=== PATIENT | male | born 1970 | race Caucasian/White ===

== ENCOUNTER 2017-07-02 07:59 | Emergency (ER) | payer OTHER ==
[2017-07-02] MEDS ORDERED: Famotidine 20 MG/2 ML SDV IVPUSH ONE (08:05)
--- NOTE | 2017-07-02 08:05 | EDM.PDOC ---
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 Departure - Departure Time of Disposition: 09:55 Disposition: DC/Tfer to [facility] 02 Clinical Impression: Sinus bradycardia, First degree AV block, Coronary artery disease, Syncope, Peptic reflux disease, Osteoarthritis, D-dimer, elevated, Pulmonary embolism, COPD (chronic obstructive pulmonary disease), Nasal fracture, Abrasion - Discharge Information Referrals: Nic Garcia PA [Primary Care Provider] - Forms: ED Department Discharge, Interfacility Transfer EMTALA - Problem List & Annotations (1) Pulmonary embolism SNOMED Code(s): 14079329, 91662270 Code(s): I26.99 - OTHER PULMONARY EMBOLISM WITHOUT ACUTE COR PULMONALE Status: Acute Priority: High Current Visit: Yes Onset Date: 07/02/17 Annotation/Comment:: Multiple large bilateral PEs as above with immediate initiation of IV heparin, including IV bolus as per VTE protocol, once the CTA scan report was received as above. Note previous ASA and Brilinta. Telephone consultation at 09:[address] Benjamin, hospitalist at [facility], who does accept the patient for direct admission into their facility. No further treatment recommendations given. Vital signs and pulse were relatively stable at time of discharge although somewhat elevated blood pressure, which was treated with one dose of IV Vasotec secondary to his right heart strain by CT scan as above. Blood pressure improved with this therapy. Continue to observe his blood pressures closely with no previous history of hypertension. Ambulance transfer with policy value calculator accompaniment. Note that the patient did drive to [place] in April, however did make frequent stops every 2 hours, with no previous history of leg pain, swelling, etc.. [employer] work excuse completed with the patient's also given a blank [place] form for his [place] physicians Qualifiers: Pulmonary embolism type: other Chronicity: acute Acute cor pulmonale presence: with acute cor pulmonale Qualified Code(s): I26.09 - Other pulmonary embolism with acute cor pulmonale (2) Coronary artery disease SNOMED Code(s): 66245473 Code(s): I25.10 - ATHSCL HEART DISEASE OF [place] CORONARY ARTERY W/O ANG PCTRS Status: Acute Priority: High Current Visit: Yes Onset Date: Annotation/Comment:: Possible anterior wall cardiac ischemia with evidence of right heart strain secondary to pulmonary embolism by CT scan as above. No recent chest pain or anginal type symptoms, however note recent decreased exercise tolerance. Consider cardiology consultation, cardiac workup, etc. depending on his clinical course. Note that aspirin and Brilinta were given after EKG was obtained secondary anterior wall cardiac changes. No beta lenka therapy was given secondary to his bradycardia on arrival Qualifiers: Coronary Disease-Associated Artery/Lesion type: [place] artery [place] vs. transplanted heart: [place] heart Associated angina: without angina Qualified Code(s): I25.10 - Atherosclerotic heart disease of [place] coronary artery without angina pectoris (3) Syncope SNOMED Code(s): 240554032 Code(s): R55 - SYNCOPE AND COLLAPSE Status: Acute Priority: High Current Visit: Yes Onset Date: 07/02/17 Annotation/Comment:: Likely secondary to pulmonary emboli as above Qualifiers: Syncope type: unspecified Qualified Code(s): R55 - Syncope and collapse (4) COPD (chronic obstructive pulmonary disease) SNOMED Code(s): 95214544 Code(s): J44.9 - CHRONIC OBSTRUCTIVE PULMONARY DISEASE, UNSPECIFIED Status : Chronic Priority: Medium Current Visit: Yes Annotation/Comment:: Moderate COPD by chest x-ray with no recent fever or bronchitic type symptoms. No previous history of asthma, COPD or known pulmonary disease. Consider PFTs once the patient's health status has improved Qualifiers: COPD type: emphysema Emphysema type: panlobular Qualified Code(s): J43.1 - Panlobular emphysema (5) D-dimer, elevated SNOMED Code(s): 759673041 Code(s): R79.89 - OTHER SPECIFIED ABNORMAL FINDINGS OF BLOOD CHEMISTRY Status: Acute Priority: High Current Visit: Yes Onset Date: 07/02/17 Annotation/Comment:: Secondary to large bilateral pulmonary emboli as above (6) First degree AV block SNOMED Code(s): 208920271 Code(s): I44.0 - ATRIOVENTRICULAR BLOCK, FIRST DEGREE Status: Acute Priority: High Current Visit: Yes Onset Date: 07/02/17 Annotation/Comment: : Newly diagnosed with possible heart disease as above (7) Osteoarthritis SNOMED Code(s): 626826954 Code(s): M19.90 - UNSPECIFIED OSTEOARTHRITIS, UNSPECIFIED SITE Status: Chronic Priority: Medium Current Visit: Yes Annotation/Comment:: Stable by history Qualifiers: Osteoarthritis location: multiple joints Osteoarthritis type: primary Qualified Code(s): M15.0 - Primary generalized (osteo)arthritis (8) Peptic reflux disease SNOMED Code(s): 35409580 Code(s): K21.9 - GASTRO-ESOPHAGEAL REFLUX DISEASE WITHOUT ESOPHAGITIS Status: Chronic Priority: Medium Current Visit: Yes Annotation/Comment:: Stable by history with high-dose IV Pepcid given as GI prophylaxis (9) Sinus bradycardia SNOMED Code(s): 84550487 Code(s): R00.1 - BRADYCARDIA, UNSPECIFIED Status: Chronic Priority: High Current Visit: Yes Annotation/Comment:: Previous history of sinus bradycardia, however patient has not been physically active recently as above. Consider cardiac workup as above (10) Abrasion SNOMED Code(s): 369389034 Code(s): T14.8 - OTHER INJURY OF UNSPECIFIED BODY REGION Status: Acute Priority: Medium Current Visit: Yes Onset Date: 07/02/17 Annotation/ Comment:: Mild head contusion and superficial abrasion of the nasal bridge. DTaP given. Neosporin dressing placed (11) Nasal fracture SNOMED Code(s): 961029296 Code(s): S02.2XXA - FRACTURE OF NASAL BONES, INIT ENCNTR FOR CLOSED FRACTURE Status: Acute Priority: High Current Visit: Yes Onset Date: 07/02/17 Annotation/Comment:: Mild nasal bridge fracture as above. No intervention required Qualifiers: Encounter type: initial encounter Fracture type: closed Qualified Code(s) : S02.2XXA - Fracture of nasal bones, initial encounter for closed fracture - Problem List Review Problem List Initiated/Reviewed/Updated: Yes - My Orders Last 24 Hours: My Active Orders 07/02/17 08:05 Cardiac Monitoring [RC] . DIRECTED Oxygen Therapy, ED [RC] CONTINUOUS Pulse Oximetry [RC] CONTINUOUS Up With Assistance [RC] PFP Vital Signs [RC] PFP Chest 1V Frontal [CR] Stat Sodium Chloride 0.9% [Saline Flush] 10 ml FLUSH ASDIRECTED PRN Obtain Past Medical Record [OM.PC] Urgent Peripheral IV Insertion Adult [OM.PC] Stat Resuscitation Status Stat 07/02/17 08:06 EKG Documentation Completion [RC] ASDIRECTED Peripheral IV Care [RC] . DIRECTED 07/02/17 08:07 PROLACTIN [REF] Stat 07/02/17 08:13 Facial Bones Less 3V [CR] Stat 07/02/17 08:24 Vaccines to be Administered [RC] PER UNIT ROUTINE 07/02/17 08:27 Chest PE [Ang Chest] [CT] Stat 07/02/17 09:15 Heparin Sodium/D5W [Heparin 25,000 Units in D5W 500 ML] 25,000 units in 500 ml IV TITRATE 07/02/17 09:30 Sodium Chloride 0.9% [Normal Saline] 1,000 ml IV ASDIRECTED 07/02/17 Breakfast Nothing per Oral Now Diet [DIET] - Assessment/Plan Last 24 Hours: My Active Orders 07/02/17 08:05 Cardiac Monitoring [RC] . DIRECTED Oxygen Therapy, ED [RC] CONTINUOUS Pulse Oximetry [RC] CONTINUOUS Up With Assistance [RC] PFP Vital Signs [RC] PFP Chest 1V Frontal [CR] Stat Sodium Chloride 0.9% [Saline Flush] 10 ml FLUSH ASDIRECTED PRN Obtain Past Medical Record [OM.PC] Urgent Peripheral IV Insertion Adult [OM.PC] Stat Resuscitation Status Stat 07/02/17 08:06 EKG Documentation Completion [RC] ASDIRECTED Peripheral IV Care [RC] . DIRECTED 07/02/17 08:07 PROLACTIN [REF] Stat 07/02/17 08:13 Facial Bones Less 3V [CR] Stat 07/02/17 08:24 Vaccines to be Administered [RC] PER UNIT ROUTINE 07/02/17 08:27 Chest PE [Ang Chest] [CT] Stat 07/02/17 09:15 Heparin Sodium/D5W [Heparin 25,000 Units in D5W 500 ML] 25,000 units in 500 ml IV TITRATE 07/02/17 09:30 Sodium Chloride 0.9% [Normal Saline] 1,000 ml IV ASDIRECTED 07/02/17 Breakfast Nothing per Oral Now Diet [DIET] Assessment:: As above Plan: As above. Extensive precautions were given to the patient and his , who are in agreement with the treatment plan. Ambulance transfer with policy value calculator accompaniment
[2017-07-02] MEDS ORDERED: Aspirin 81 MG Tab.Chew CHEW ONE (08:15)
[2017-07-02] MEDS ORDERED: Ticagrelor 90 MG Tab PO ONE (08:15)
[2017-07-02] MEDS ORDERED: Diphtheria,Pertussis(Acell),Tetanus Vaccine 0.5 ML SDV IM ONE (08:24)
[2017-07-02] MEDS: Sodium Chloride 0.9% 10 ML Syringe FLUSH PRN ×2 (08:30→09:48)
[2017-07-02] MEDS ORDERED: Iopamidol 755 Mg/ML 100 ML Bottle IVPUSH ONE (08:32)
[2017-07-02 08:42] LABS: CHLORIDE,CL 103 mmol/L (98-107); SODIUM,NA 137 mmol/L (136-145)
[2017-07-02] MEDS ORDERED: Heparin Sodium 5,000 Units/ML Vial IVPUSH ONE (09:13)
[2017-07-02] MEDS ORDERED: Bacitracin/Neomycin/Polymyxin B Oint 0.9 GM U/D Packet TOP ONE (09:15)
[2017-07-02] MEDS ORDERED: Heparin Sodium/D5W 25,000 UNITS/500 ML BAG IV SCH (09:15)
[2017-07-02] MEDS ORDERED: Sodium Chloride 0.9% 1,000 ML IV SCH (09:30)
[2017-07-02] MEDS ORDERED: Enalaprilat 1.25 MG/ML SDV IVPUSH ONE (09:44)
[2017-07-02 09:53] VITALS: BP 147/98
== END 2017-07-02 09:55 ==
LOC: LL.ED 07:59
DX: S02.2XXA Fracture of nasal bones, initial encounter for closed fracture (principal); I44.0 Atrioventricular block, first degree; I26.99 Other pulmonary embolism without acute cor pulmonale; R00.1 Bradycardia, unspecified; J44.9 Chronic obstructive pulmonary disease, unspecified; I25.10 Atherosclerotic heart disease of native coronary artery without angina pectoris; M19.90 Unspecified osteoarthritis, unspecified site; K21.9 Gastro-esophageal reflux disease without esophagitis; R79.89 Other specified abnormal findings of blood chemistry; X58.XXXA Exposure to other specified factors, initial encounter
CPT/HCPCS: 36415; 70140; 71010; 71275; 80053; 82550; 82553; 83036; 83605; 83735; 83880; 84146; 84443; 84484; 84550; 85025; 85379; 85610; 85730; 90471; 90715; 93005; 96365; 96375; 96376; 99285; A9270; J1644; J7030; J7050; Q9967; S0028

== ENCOUNTER 2021-09-09 12:25 | Emergency (ER) | payer OTHER ==
[2021-09-09 13:39] LABS: ANION GAP 10.1 meq/L (7-15); CHLORIDE,CL 106 mmol/L (98-107); SODIUM,NA 142 mmol/L (136-145)
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
[2021-09-09 17:11] VITALS: BP 143/93; PULSE 73
== END 2021-09-09 15:00 | disposition home or self-care (01) ==
LOC: LL.ED 12:25
DX: S01.01XA Laceration without foreign body of scalp, initial encounter (principal); R55 Syncope and collapse; K21.9 Gastro-esophageal reflux disease without esophagitis; Z79.899 Other long term (current) drug therapy; W18.39XA Other fall on same level, initial encounter
CPT/HCPCS: 12001; 36415; 80053; 83735; 84484; 85025; 85379; 93005; 99283-25

== ENCOUNTER 2025-01-24 19:46 | Emergency (ER) | payer OTHER ==
[2025-01-24] MEDS ORDERED: Sodium Chloride 0.9% 10 ML Syringe FLUSH PRN (20:09)
[2025-01-24] MEDS: Lactated Ringers 1,000 ML IV SCH (20:12)
[2025-01-24 20:31] LABS: HEMATOCRIT 38.6 % (39.0-49.0); HEMOGLOBIN 12.9 g/dL (13.1-16.8); MEAN CORPUSCULAR HEMOGLOBIN 28.9 pg (28.2-33.3); MEAN CORPUSCULAR HGB CONC 33.4 g/dL (31.7-36.0); MEAN CORPUSCULAR VOLUME 86.5 fL (84.0-98.0); PLATELET COUNT,PLT 124 K/uL (150-350); RED BLOOD CELL COUNT 4.46 M/uL (4.33-5.41); RED CELL DISTRIBUTION WIDTH 14.1 % (11.2-14.1); WHITE BLOOD CELL COUNT,WBC 5.2 K/uL (4.0-10.2)
[2025-01-24 20:54] LABS: AMPHETAMINES SCREEN, URINE NEGATIVE (NEGATIVE); BARBITURATE SCREEN,URINE NEGATIVE (NEGATIVE); BENZODIAZEPINES SCREEN,URINE NEGATIVE (NEGATIVE); COCAINE METABOLITES,URINE NEGATIVE (NEGATIVE); EDDP,URINE SCREEN NEGATIVE (NEGATIVE); METHAMPHETAMINES SCREEN, URINE NEGATIVE (NEGATIVE); TCA SCREEN,URINE NEGATIVE (NEGATIVE); THC SCREEN,URINE 50 NG/ML NEGATIVE (NEGATIVE)
[2025-01-24 20:56] LABS: BUPRENORPHINE SCREEN,URINE NEGATIVE (NEGATIVE); OXYCODONE SCREEN,URINE NEGATIVE (NEGATIVE)
[2025-01-24 21:00] LABS: ALANINE AMINOTRANSFERASE,ALT 34 U/L (12-78); ALBUMIN 3.6 g/dL (3.4-5.0); ALKALINE PHOSPHATASE 67 IU/L (46-116); ASPARTATE AMNIOTRANSFERASE,AST 20 U/L (15-37); BILIRUBIN TOTAL 0.6 mg/dL (0.2-1.0); BLOOD UREA NITROGEN,BUN 13 mg/dL (7-18); CALCIUM 8.8 mg/dL (8.5-10.1); CARBON DIOXIDE,CO2 29.5 mmol/L (21.0-32.0); CHLORIDE,CL 108 mmol/L (98-107); CREATININE 0.89 mg/dL (0.51-1.17); GLUCOSE RANDOM 117 mg/dL (70-99); MAGNESIUM 1.9 mg/dL (1.8-2.4); PRO B-TYPE NATRIUR PEPT,BNPPRO 45 pg/mL (0-125); PROTEIN TOTAL,TP 6.8 g/dL (6.4-8.2); SODIUM,NA 144 mmol/L (136-145)
[2025-01-24 21:01] LABS: ANION GAP 10.5 meq/L (7-15); ESTIMATED GFR 102 mL/min (>=60)
[2025-01-24 21:11] VITALS: PULSE 56
[2025-01-24] MEDS: cloNIDine 0.1 MG Tab PO ONE (21:26)
[2025-01-24 21:56] VITALS: BP 156/94
== END 2025-01-24 22:10 | disposition home or self-care (01) ==
LOC: LL.ED 19:46
DX: R55 Syncope and collapse (principal); K21.9 Gastro-esophageal reflux disease without esophagitis; Z79.899 Other long term (current) drug therapy
CPT/HCPCS: 36415; 71045; 80053; 80305-QW; 80307; 82947; 83605; 83735; 83880; 84484; 85027; 85379; 85610; 93005; 93010; 96360; 99284; 99284-25; A9270-GY; J7120